=== PATIENT | male | born 1945 | race Caucasian/White ===

== ENCOUNTER 2021-12-24 10:07 | Observation (INO) | payer MEDICARE, BC ==
[2021-12-24 10:50] LABS: #Eosinphils 0.1 10x3/uL (0.0-0.5); #Monocytes 0.6 10x3/uL (0.0-1.1); #Neutrophils 4.4 10x3/uL (1.5-8.4); %Basophils 0.2 % (0.0-2.0); %Eosinophils 1.9 % (0.0-6.0); %Lymphocytes 20.1 % (18.0-47.0); %Monocytes 8.7 % (0.0-10.0); %Neutrophils 68.6 % (40.0-75.0); Hemoglobin 13.4 g/dL (13.5-17.5); Mean Corpuscular HGB CONC 35.4 g/dL (32.0-36.0); Mean Corpuscular Hemoglobin 31.2 pg (27.0-33.0); Mean Corpuscular Volume 88.1 fl (81.2-95.1); Mean Platelet Volume 10.5 fl (7.4-10.4); Platelet Count 173 10x3/uL (150-450); RBC Distribution Width 12.5 % (11.5-14.5); Red Blood Cell (RBC) Count 4.29 10x6/uL (4.32-5.72); White Blood Cell (WBC) Count 6.4 10x3/uL (3.5-10.5)
[2021-12-24 11:05] LABS: ALT (SGPT) 14 U/L (8-55); AST (SGOT) 27 U/L (5-34); Albumin 4.2 g/dL (3.4-4.8); Alkaline Phosphatase 59 U/L (40-110); Anion Gap 14 mmol/L (10-20); BUN (Urea Nitrogen) 23 mg/dL (8.4-25.7); Bilirubin, Total 0.7 mg/dL (0.2-1.2); Calc. Creatinine Clearance 0 mL/min (70-130); Calcium 9.1 mg/dL (7.8-10.44); Carbon Dioxide 26 mmol/L (23-31); Chloride 106 mmol/L (98-107); Estimated GFR 45; Globulin 2.6 g/dL (2.4-3.5); Glucose 97 mg/dL (83-110); Potassium 4.2 mmol/L (3.5-5.1); Protein, Total 6.8 g/dL (5.8-8.1); Sodium 142 mmol/L (136-145)
[2021-12-24] MEDS ORDERED: Nitroglycerin 2% Ointment 1 INCH/1 GM Packet ONE (11:22)
[2021-12-24] MEDS ORDERED: Senokot S 8.6-50 MG TAB PO PRN (13:50)
[2021-12-24] MEDS ORDERED: Ondansetron ODT 4 MG TAB PO PRN (13:50)
[2021-12-24] MEDS ORDERED: Ondansetron PF 4 MG/2 ML Vial IVP PRN (13:50)
[2021-12-24 14:05] LABS: Troponin I Less than 0.010 ng/mL (< 0.028)
[2021-12-24] MEDS ORDERED: Acetaminophen/Codeine 30-300mg Tablet PO PRN (14:50)
[2021-12-24] MEDS ORDERED: Aspirin 325 MG TAB PO SCH (15:00)
[2021-12-24] MEDS: Sodium Chloride 0.9% 1,000 ML IV SCH (15:18)
[2021-12-24 15:26] VITALS: BMI 28.2
[2021-12-24 16:22] LABS: Bilirubin Neg (Negative); Blood, Urine 50 (Negative); Clarity Clear (Clear); Glucose, Urine (Dipstick) Normal (Negative); Ketone, Urine Negative (Negative); Leukocyte Negative (Negative); Nitrite Negative (Negative); Protein, Urine (Dipstick) Negative (Neg-Trace); Urobilinogen Normal mg/dL (Less than 2)
[2021-12-24] MEDS ORDERED: Amlodipine 5 MG TAB PO SCH (16:30)
[2021-12-24 16:31] LABS: Bacteria/HPF None Seen HPF (None Seen); Squamous Epithelial 0-3 HPF (0-3); WBC/HPF 0-3 HPF (0-3)
[2021-12-24] MEDS: AMOXicillin 250 MG CAP PO SCH ×2 (16:58→21:22)
[2021-12-24 17:00] LABS: Troponin I 0.012 ng/mL (< 0.028)
[2021-12-24 17:05] LABS: SARS-CoV-2 NAA Rapid Test Not Detected (NotDetected)
[2021-12-24] MEDS ORDERED: Zolpidem Tartrate 5 MG TAB PO PRN (19:25)
[2021-12-24] MEDS: Apixaban 5 MG TAB PO SCH (21:23)
[2021-12-24] MEDS: Mesalamine DR 400 mg Capsule PO SCH (21:24)
[2021-12-24] MEDS: Acetaminophen 325 MG TAB PO PRN (21:29)
[2021-12-24] MEDS ORDERED: cloNIDine 0.1 MG TAB PO SCH (21:30)
[2021-12-24] MEDS ORDERED: hydrALAZINE 20 MG/ML VIAL SLOW IVP SCH (23:45)
[2021-12-25] MEDS: Sodium Chloride 0.9% 1,000 ML IV SCH (04:18)
[2021-12-25] MEDS: Acetaminophen 325 MG TAB PO PRN (04:18)
[2021-12-25 05:10] LABS: Anion Gap 13 mmol/L (10-20); BUN (Urea Nitrogen) 20 mg/dL (8.4-25.7); Calc. Creatinine Clearance 76 mL/min (70-130); Calcium 8.9 mg/dL (7.8-10.44); Carbon Dioxide 24 mmol/L (23-31); Cardiac Risk 4.9 (Less than 4.5); Chloride 107 mmol/L (98-107); Cholesterol 193 mg/dl (< 200 Desired); Estimated GFR 68; Glucose 110 mg/dL (83-110); HDL Cholesterol 39 mg/dL (>60 Neg Risk); LDL Cholesterol, Calculated 127 mg/dL; Potassium 3.5 mmol/L (3.5-5.1); Sodium 140 mmol/L (136-145); Triglycerides 135 mg/dL (Less than 150)
[2021-12-25 05:13] LABS: #Monocytes 0.5 10x3/uL (0.0-1.1); #Neutrophils 6.4 10x3/uL (1.5-8.4); %Basophils 0.2 % (0.0-2.0); %Eosinophils 0.4 % (0.0-6.0); %Lymphocytes 12.9 % (18.0-47.0); %Monocytes 6.4 % (0.0-10.0); %Neutrophils 79.9 % (40.0-75.0); Hemoglobin 13.3 g/dL (13.5-17.5); Mean Corpuscular HGB CONC 35.2 g/dL (32.0-36.0); Mean Corpuscular Hemoglobin 31.2 pg (27.0-33.0); Mean Corpuscular Volume 88.7 fl (81.2-95.1); Mean Platelet Volume 10.7 fl (7.4-10.4); Platelet Count 173 10x3/uL (150-450); RBC Distribution Width 12.4 % (11.5-14.5); Red Blood Cell (RBC) Count 4.26 10x6/uL (4.32-5.72); White Blood Cell (WBC) Count 8.1 10x3/uL (3.5-10.5)
[2021-12-25] MEDS ORDERED: Levothyroxine Sodium 100 MCG TAB PO SCH ×2 (06:00→09:00)
[2021-12-25] MEDS: Apixaban 5 MG TAB PO SCH (08:38)
[2021-12-25] MEDS: Mesalamine DR 400 mg Capsule PO SCH (08:39)
[2021-12-25] MEDS: AMOXicillin 250 MG CAP PO SCH ×2 (08:39→14:08)
[2021-12-25] MEDS ORDERED: Amlodipine 5 MG TAB PO SCH (09:00)
[2021-12-25] MEDS ORDERED: Ezetimibe 10 MG TAB PO SCH (09:00)
[2021-12-25] MEDS ORDERED: Fish Oil 1,000 MG CAP PO SCH (09:00)
[2021-12-25 12:20] LABS: Hemoglobin A1c 5.4 % (4.0-6.0)
[2021-12-25 16:03] VITALS: BP 162/87; TEMP 97.9
== END 2021-12-25 16:04 | disposition home or self-care (01) ==
LOC: CSHERS 10:07 → CSHTELE 14:10
PROVIDERS: ADMIT Family Medicine; ATTEND Internal Medicine
DX: I95.1 Orthostatic hypotension (principal); R42 Dizziness and giddiness; R26.81 Unsteadiness on feet; G45.9 Transient cerebral ischemic attack, unspecified; I48.91 Unspecified atrial fibrillation; I12.0 Hypertensive chronic kidney disease with stage 5 chronic kidney disease or end stage renal disease; N18.31 Chronic kidney disease, stage 3a; E03.9 Hypothyroidism, unspecified; K51.90 Ulcerative colitis, unspecified, without complications; Z88.7 Allergy status to serum and vaccine; Z79.890 Hormone replacement therapy; Z79.899 Other long term (current) drug therapy; Z79.01 Long term (current) use of anticoagulants; Z20.822 Contact with and (suspected) exposure to COVID-19
CPT/HCPCS: 0240U; 70450; 70551; 71045; 80048; 80053; 80061; 81001; 83036; 83880; 84439; 84443; 84484 ×2; 85025 ×2; 93005 ×2; 93306; 93880; 94760 ×2; 99285; 36415; 93010; 96374; 96375; G0378; J0360; J2405; J7050